=== PATIENT | female | born 1965 | race Hispanic/Latino ===

== ENCOUNTER 2020-10-09 01:33 | Emergency (ER) | payer BC ==
--- OUTSIDE RECORDS SUMMARY | 2020-10-09 01:43 | XMS REPORT | Continuity of Care Document ---
:1965 Author Organization [facility] t Address [address] [place] [address] [address]. [address] [place] [address] Care Team Providers Name Role Phone Sofia DOLL Primary Care Physician Kanika DOLL P. 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 4-15 Me thodi nucleus nucleus 00:00: st pulposus), pulposus), 00 lumbar lumbar Class 1 Class 1 Disease Active [place] obesity obesity 4-15 Methodi due to due to 00:00: st excess excess 00 calories calories without without serious serious comorbidit comorbidit y with y with body mass body mass index index (BMI) of (BMI) of 32.0 to 32.0 to 32.9 in 32.9 in adult adult Allergies, Adverse Reactions, Alerts Allergy Allergy Status Severity Reaction(s) Onset Inactive Treating Comm ents Source Name Type Date Date Clinician Tizanidi Propensi Active IRREGULAR [place] st[place] ne ty to 4-11 HEART Methodi adverse 00:00: BEAT st reaction 00 s to drug Family History Family Member Diagnosis Comments Start Date Stop Date Source Natural mother Diabetes [place] [facility] Natural mother Heart disease [place] [facility] Natural mother Hypertension [place] [facility] Natural mother Cancer [place] [facility] Natural father Arthritis [place] [facility] Natural father Diabetes [facility] thodist Natural father Hypertension Kwesi Garg Social History Social Habit Start Date Stop Date Quantity Comments Source History of tobacco Current smoker Renan alves [facility] use Cigarettes smoked 2018-09-24 2018-09-24 Kwesi Boydist current (pack per 00:00:00 00:00:00 day) - Reported Cigarette 2018-09-24 2018-09-24 Kwesi Method ist pack-years 00:00:00 00:00:00 Tobacco use and 2018-09-24 2018-09-24 Never used Kwesi Long ethodist exposure 00:00:00 00:00:00 Alcohol intake 2018-09-24 2018-09-24 Current drinker [place] [facility] 00:00:00 00:00:00 of alcohol (finding) Alcohol Comment 2018-07-23 2018-07-23 social-very rare Mell sharpe [facility] 00:00:00 00:00:00 Sex [birth year] Kwesi sernaodist 00:00:00 00:00:00 Smoking Status Start Date Stop Date Source Former smoker 2018-09-24 00:00:00 2018-09-24 00:00:00 Kwesi Garg Medications Ordered Filled Start Stop Current Ordering Indication Dosage Frequency Signature Comments Components Source Medication Medication Date Date Medication? Clinician (SIG) Name Name aspirin Yes 81mg QD Take 81 mg [place] (ECOTRIN) 5-07 by mouth Method i 81 MG 19:15: nightly. st enteric 50 coated tablet diclofenac Yes 50mg Q.5D Take 50 mg [place] (VOLTAREN) 5-07 by mouth 2 Met hodi 50 MG EC 19:15: (two) st tablet 50 times a day. thiamine 50 2018- Yes 50mg Q.5D Take 50 mg [place] MG tablet 5-07 by mouth 2 Meth yasmine 19:15: (two) st 50 times a day. pyridoxine, Yes 50mg Q.5D Take 50 mg [place] vitamin B6, 5-07 by mouth 2 Me thodi (B-6) 50 MG 19:15: (two) st tablet 50 times a day. cyanocobala Yes 100ug Q.5D Take 100 [place] min 100 MCG 5-07 mcg by Method i tablet 19:15: mouth 2 st 50 (two) times a day. atorvastati Yes TK 1 T PO [place] (LIPITOR) -22 QNIGHTLY Meth yasmine 10 MG 00:00: st tablet 00 metoprolol Yes TK 1 T PO [place] succinate -22 QNIGHTLY Method i XL 00:00: st (TOPROL-XL) 00 50 mg 24 hr tablet omeprazole Yes TK 1 C PO [place] (PriLOSEC) - QD Methodi 40 MG 00:00: st capsule 00 Immunizations Ordered Immunization Filled Immunization Date Status Commen ts Source Name Name PFIZER COVID-19 MRNA 2020-07-01 Completed [place] VACCINATION 00:00:00 [facility] PFIZER COVID-19 MRNA 2020-06-10 Completed [place] VACCINATION 00:00:00 [facility] Procedures This patient has no known procedures. Plan of Care Planned Activity Planned Date Details Comments Source Future Scheduled 2020-11-08 INFLUENZA VACCINE [place] [facility] Test 00:00:00 [code = INFLUENZA VACCINE] Future Scheduled 2014 BREAST CANCER [facility] thodist Test 00:00:00 SCREENING [code = BREAST CANCER SCREENING] Future Scheduled 2014 COLONOSCOPY SCREENING [place] [facility] Test 00:00:00 [code = COLONOSCOPY SCREENING] Future Scheduled 2014 SHINGLES VACCINES [place] [facility] Test 00:00:00 (#1) [code = SHINGLES VACCINES (#1)] Future Scheduled 1985 Screening for [facility] thodist Test 00:00:00 malignant neoplasm of cervix (procedure) [code = 535193776] Future Scheduled 1982 Hepatitis C screening [place] [facility] Test 00:00:00 (procedure) [code = 652627392] Encounters Start End Encounter Admission Attending Care Care Encounter Source Date/Time Date/Time Type Type Clinicians Facility Department ID 2020-07-01 2020-07-01 Outpatient KANIKA [facility] [id number] [place] 00:00:00 00:00:00 BRI [address]Glenn Me thodi st 2020-06-10 2020-06-10 Outpatient [facility] [id number] 949 [place] 00:00:00 00:00:[address] Results This patient has no known results.
[2020-10-09 02:30] LABS: Absolute Lymphocytes (CBC) 3.2 K/uL (0.7-4.9); Hematocrit 39.4 % (36.0-45.0); Lymphocytes % 42.9 % (15.3-44.8); MPV 10.1 fL (7.6-11.3); RBC Red Blood Cell Count 4.47 M/uL (3.86-4.86)
[2020-10-09] MEDS ORDERED: NA CHLORIDE 0.9% 1,000 ML ONE (02:39)
[2020-10-09 02:53] LABS: Potassium 4.2 mmol/L (3.5-5.1)
[2020-10-09 03:04] LABS: Urine Bacteria <20 /HPF (<20); Urine RBC <5 /HPF (NONE SEEN)
--- NOTE | 2020-10-09 03:39 | EDPHYS ---
Physician Documentation [facility] Name: Umm Ghotra Age: 55 yrs Sex: Female : 1965 Arrival Date: 10/09/2020 Time: 01:38 Bed 13 Private MD: ED Physician Antonio Magallanes HPI: 10/09 02:08 This 55 yrs old Female presents to ER via Unassigned with complaints of High rn Blood Sugar. 02:08 The patient or guardian reports hyperglycemia, polyuria, that was potentially rn precipitated by no particular event. Onset: The symptoms/episode began/occurred yesterday. Associated signs and symptoms: Pertinent positives: polyuria, Pertinent negatives: anorexia, seizure activity, vomiting. Current symptoms: In the emergency department the patient's symptoms are unchanged from the initial presentation. It is unknown whether or not the patient has had similar symptoms in the past. The patient has not recently seen a physician. Reports diabetic, takes metformin, has been eating bad last month or so, felt like was peeing a lot today and had headache so checked blood sugar and was 300s, never that high so came in for eval. No fever/vomiting/diarrhea. No abd pain/chest pain/focal neuro complaint. . Historical: - Allergies: 02:12 No Known Allergies; jm8 - Home Meds: 02:12 metformin 500 mg Oral Tb24 1 tab 2 times per day [Active]; jm8 - PMHx: 02:12 Diabetes mellitus; jm8 - PSHx: 02:12 None; 8 - Immunization history:: Adult Immunizations up to date. - Social history:: Smoking status: Patient denies any tobacco usage or history of. - Family history:: not pertinent. - Hospitalizations: : No recent hospitalization is reported. ROS: 02:08 Constitutional: Negative for fever, chills, and weight loss, Eyes: Negative for injury, rn pain, redness, and discharge, Neck: Negative for injury, pain, and swelling, Cardiovascular: Negative for chest pain, palpitations, and edema, Respiratory: Negative for shortness of breath, cough, wheezing, and pleuritic chest pain, Abdomen/GI: Negative for abdominal pain, nausea, vomiting, diarrhea, and constipation, Back: Negative for injury and pain, : + polyuria MS/Extremity: Negative for injury and deformity, Skin: Negative for injury, rash, and discoloration, Neuro: Negative for headache, weakness, numbness, tingling, and seizure. Exam: 02:08 Constitutional: This is a well developed, well nourished patient who is awake, alert, rn and in no acute distress. Smiling, non-toxic Head/Face: Normocephalic, atraumatic. Eyes: Pupils equal round and reactive to light, extra-ocular motions intact. ENT: dry MM Cardiovascular: Regular rate and rhythm. No pulse deficits. Respiratory: No increased work of breathing, no retractions or nasal flaring. Abdomen/GI: Soft, non-tender Skin: Warm, dry MS/ Extremity: Pulses equal, no cyanosis. Neuro: Awake and alert, GCS 15, oriented to person, place, time, and situation. Cranial nerves II-XII grossly intact. Motor strength 5/5 in all extremities. Sensory grossly intact. Cerebellar exam normal. Normal gait. Vital Signs: 02:08 BP 155 / 81; Pulse 67; Resp 16; Temp 97.6; Pulse Ox 99% on R/A; Weight 78.02 kg; Height jm8 5 ft. 2 in. (157.48 cm); Pain 7/10; 03:59 BP 121 / 64; Pulse 58; Resp 16; Pulse Ox 99% on R/A; 8 02:08 Body Mass Index 31.46 (78.02 kg, 157.48 cm) 8 MDM: 01:42 Patient medically screened. rn 03:37 Differential diagnosis: DKA, hyperglycemia. Data reviewed: vital signs, nurses notes, lathe turner test result(s), and as a result, I will discharge patient. Counseling: I had a detailed discussion with the patient and/or guardian regarding: the historical points, exam findings, and any diagnostic results supporting the discharge/admit diagnosis, lab results, the need for outpatient follow up, to return to the emergency department if symptoms worsen or persist or if there are any questions or concerns that arise at home. Response to treatment: the patient's symptoms have mildly improved after treatment, and as a result, I will discharge patient. Special discussion: I discussed with the patient/guardian in detail that at this point there is no indication for admission to the hospital. It is understood, however, that if the symptoms persist or worsen the patient needs to return immediately for re-evaluation. Based on the history and exam findings, there is no indication for further emergent testing or inpatient evaluation. I discussed with the patient/guardian the need to see the primary care provider for further evaluation of the symptoms. ED course: Recommend better diet and glucose control, fluids given here, will not give insulin in middle of night to insulin naive patient for fear of hypoglycemic episode, will recheck sugar tomorrow and call pcp . . 10/09 02:08 Order name: CBC with Diff; Complete Time: 02:59 rn 10/09 02:08 Order name: Basic Metabolic Panel; Complete Time: 02:59 rn 10/09 02:08 Order name: Urine Microscopic Only; Complete Time: 03:37 rn 10/09 02:30 Order name: Glucose, Ancillary Testing; Complete Time: 02:59 EDMS 10/09 03:56 Order name: Glucose, Ancillary Testing EDWI 10/09 02:08 Order name: IV Start; Complete Time: 02:23 rn 10/09 02:08 Order name: Urine Dipstick-Ancillary (obtain specimen); Complete Time: 02:22 rn 10/09 02:08 Order name: Glucose Level; Complete Time: 02:19 rn Administered Medications: 02:19 Drug: NS 0.9% 1000 ml Route: IV; Rate: 1000 ml; Site: right antecubital; jm8 03:58 Follow up: IV Status: Completed infusion jm8 Disposition Summary: 10/09/20 03:38 Discharge Ordered Location: Home rn Problem: new rn Symptoms: have improved rn Condition: Stable rn Diagnosis - Hyperglycemia, unspecified rn Followup: rn - With: Private Physician - When: 1 - 2 days - Reason: Recheck today's complaints, Re-evaluation by your physician Discharge Instructions: - Discharge Summary Sheet rn - Hyperglycemia rn - Blood Glucose Monitoring, Adult rn Forms: - Medication Reconciliation Form rn - Thank You Letter rn - Antibiotic rn discharge - Prescription Opioid Use rn Signatures: Dispatcher [employer] Antonio Soler MD MD rn Malcaba, Joseph, RN RN jm8
--- NOTE | 2020-10-09 03:39 | ER ---
Nurse's Notes [facility] Name: Umm Ghotra Age: 55 yrs Sex: Female : 1965 Arrival Date: 10/09/2020 Time: 01:38 Bed 13 Private MD: Diagnosis: Hyperglycemia, unspecified Presentation: 10/09 02:08 Chief complaint: Patient states: I checked my blood sugar at 12 am tonight and it read [place] in the 340s. I'm urinating more than usual, having a headache, I'm nauseous, and my vision is blurry. Coronavirus screen: Client denies travel out of the [place] in the last 14 days. Ebola Screen: Patient negative for fever greater than or equal to 101.5 degrees Fahrenheit, and additional compatible Ebola Virus Disease symptoms Patient denies exposure to infectious person. Patient denies travel to an Ebola-affected area in the 21 days before illness onset. Initial Sepsis Screen: Does the patient meet any 2 criteria? No. Patient's initial sepsis screen is negative. Does the patient have a suspected source of infection? No. Patient's initial sepsis screen is negative. Risk Assessment: Do you want to hurt yourself or someone else? Patient reports no desire to harm self or others. Onset of symptoms was October 09, 2020 at 00:00. 02:08 Method Of Arrival: Ambulatory [facility] 02:08 Acuity: LORE[place] 3 jm8 Historical: - Allergies: 02:12 No Known Allergies; jm8 - Home Meds: 02:12 metformin 500 mg Oral Tb24 1 tab 2 times per day [Active]; jm8 - PMHx: 02:12 Diabetes mellitus; jm8 - PSHx: 02:12 None; jm8 - Immunization history:: Adult Immunizations up to date. - Social history:: Smoking status: Patient denies any tobacco usage or history of. - Family history:: not pertinent. - Hospitalizations: : No recent hospitalization is reported. Screenin:12 Abuse screen: Denies threats or abuse. Denies injuries from another. Nutritional 8 screening: No deficits noted. Tuberculosis screening: No symptoms or risk factors identified. Fall Risk None identified. Assessment: 02:23 General: Appears in no apparent distress. comfortable, Behavior is calm, cooperative, jm8 appropriate for age. Pain: Complains of pain in head Pain currently is 7 out of 10 on a pain scale. Neuro: Reports blurred vision headache. Neuro: Level of Consciousness is awake, alert, obeys commands, Oriented to person, place, time. Cardiovascular: No deficits noted. Respiratory: No deficits noted. Airway is patent Trachea midline Respiratory effort is even, unlabored, Respiratory pattern is regular, symmetrical. GI: Abdomen is flat, Reports nausea. : Reports urinary frequency. EENT: No deficits noted. No signs and/or symptoms were reported regarding the EENT system. Derm: No deficits noted. No signs and/or symptoms reported regarding the dermatologic system. Musculoskeletal: No deficits noted. No signs and/or symptoms reported regarding the musculoskeletal system. Vital Signs: 02:08 BP 155 / 81; Pulse 67; Resp 16; Temp 97.6; Pulse Ox 99% on R/A; Weight 78.02 kg; Height jm8 5 ft. 2 in. (157.48 cm); Pain 7/10; 03:59 BP 121 / 64; Pulse 58; Resp 16; Pulse Ox 99% on R/A; jm8 02:08 Body Mass Index 31.46 (78.02 kg, 157.48 cm) jm8 ED Course: 01:38 Patient arrived in ED. bp1 01:42 Antonio Magallanes MD is Attending Physician. rn 02:11 Triage completed. jm8 02:12 Arm band placed on right wrist. jm8 02:13 Patient has correct armband on for positive identification. Bed in low position. Call jm8 light in reach. Side rails up X2. Adult w/ patient. 02:34 Inserted saline lock: 20 gauge in right antecubital area, using aseptic technique. jm8 03:57 No provider procedures requiring assistance completed. IV discontinued, intact. jm8 Administered Medications: 02:19 Drug: NS 0.9% 1000 ml Route: IV; Rate: 1000 ml; Site: right antecubital; jm8 03:58 Follow up: IV Status: Completed infusion jm8 Outcome: 03:38 Discharge ordered by . rn 03:57 Discharged to home ambulatory. jm8 03:57 Condition: good 03:57 Discharge instructions given to patient, Instructed on discharge instructions, follow up and referral plans. medication usage, Demonstrated understanding of instructions, follow-up care, medications. 03:58 Patient left the ED. jm8 Signatures: Antonio Magallanes MD MD rn [place]ia[place], Brittany bp1 Malcaba, Joseph, RN RN jm8
[2020-10-09 04:15] VITALS: BP 155/81; TEMP 97.6; O2SAT 99
== END 2020-10-09 03:58 | disposition home or self-care (01) ==
LOC: ER 01:33
DX: E11.65 Type 2 diabetes mellitus with hyperglycemia (principal)
CPT/HCPCS: 96361; 85025; 80048; 36415; 82947 ×2; 81015; 96360; 99283; J7030